=== PATIENT | male | born 1985 | race Caucasian/White ===

== ENCOUNTER 2019-06-17 14:19 | Inpatient (IN) | payer SELFPAY ==
[~2019-06-17] VITALS: Ht 182.9 cm; Wt 67.6 kg
[2019-06-17] MEDS ORDERED: HALOPERIDOL LACTATE 5 MG/ML VIAL ONE (14:58)
[2019-06-17] MEDS ORDERED: LORazepam 2 MG/ML VIAL ONE (14:58)
[2019-06-17] MEDS ORDERED: DiphenhydrAMINE HCL 50 MG/ML VIAL ONE (14:58)
[2019-06-17 15:57] LABS: BASOPHILS % (AUTO) 0.6 % (0.0-2.0); EOSINOPHILS % (AUTO) 0.1 % (1.0-6.0); HEMATOCRIT 35.6 % (41-53); HEMOGLOBIN 12.1 g/dL (13.5-17.5); LYMPHOCYTES # (AUTO) 1.1 K/uL (1.0-4.8); LYMPHOCYTES % (AUTO) 13.2 % (22.0-44.0); MEAN CORPUSCULAR HEMOGLOBIN 29.9 pg (26.0-34.0); MEAN CORPUSCULAR VOLUME 88 fL (80-100); MONOCYTES # (AUTO) 0.5 K/uL (0.1-1.0); MONOCYTES % (AUTO) 5.7 % (2.0-9.0); NEUTROPHILS # (AUTO) 6.4 K/uL (1.8-7.7); NEUTROPHILS % (AUTO) 80.4 % (40.0-70.0); PLATELET COUNT (AUTO) 277 K/uL (150-450); RED BLOOD CELL COUNT(AUTO) 4.04 MIL/uL (4.50-5.90); RED CELL DISTRIBUTION WIDTH 13.7 % (11.5-14.5)
[2019-06-17 16:16] LABS: ANION GAP 11 mmol/L (8-16); CALCIUM, TOTAL 8.8 mg/dL (8.8-10.5); CARBON DIOXIDE 25 mmol/L (22-29); CHLORIDE 101 mmol/L (98-107); CREATININE 0.96 mg/dL (0.60-1.30); GLOMERULAR FILTR. RATE CALC > 60 mL/min (>60); GLUCOSE,RANDOM 134 mg/dL (70-110); SODIUM SERUM 137 mmol/L (136-145); UREA NITROGEN, BLOOD 9 mg/dL (7-18)
[2019-06-17 16:37] LABS: ALANINE AMINOTRANSFERASE 16 U/L (12-78); ALKALINE PHOSPHATASE 76 U/L (46-116); ASPARTATE AMINOTRANSFERASE 14 U/L (15-37); BILIRUBIN,TOTAL 0.7 mg/dL (0.1-1.0); CREATINE KINASE, TOTAL ONLY 254 U/L (39-308); TOTAL PROTEIN, SERUM 7.2 g/dL (6.4-8.2)
[2019-06-17 16:43] LABS: APPEARANCE,URINE CLEAR (CLEAR); BILIRUBIN,URINE NEGATIVE (NEGATIVE); GLUCOSE, URINE (UA) NEGATIVE (NEGATIVE); KETONES,URINE 15 mg/dL (NEGATIVE); LEUKOCYTE ESTERASE ,URINE NEGATIVE (NEGATIVE); NITRATE,URINE NEGATIVE (NEGATIVE); OCCULT BLOOD,URINE NEGATIVE (NEGATIVE); PROTEIN,URINE POS 1+ (NEGATIVE); UROBILINOGEN,URINE 0.2 mg/dL (<=1.0)
[2019-06-17 16:48] LABS: AMPHET/METH SCREEN,URINE NEGATIVE (NEGATIVE); BARBITURATE SCREEN, URINE NEGATIVE (NEGATIVE); BENZODIAZEPINES SCREEN,URINE NEGATIVE (NEGATIVE); CANNABINOID SCREEN,URINE POSITIVE (NEGATIVE); COCAINE SCREEN,URINE NEGATIVE (NEGATIVE); METHADONE SCREEN, URINE NEGATIVE (NEGATIVE); OPIATE SCREEN,URINE NEGATIVE (NEGATIVE)
[2019-06-17 16:50] LABS: PHENCYCLIDINE SCREEN,URINE NEGATIVE (NEGATIVE)
[2019-06-17 16:56] LABS: SALICYLATE < 2.8 mg/dL (2.8-20.0)
[2019-06-17 17:16] LABS: BACTERIA,URINE None Seen /HPF (None Seen); RBC,URINE None Seen /HPF (0-2); SQUAMOUS EPITHELIAL CELL,UR Rare /LPF (None Seen); WBC,URINE 0-2 /HPF (0-5)
[2019-06-17 17:25] LABS: ACETAMINOPHEN < 2 mcg/mL (10-30)
[2019-06-17] MEDS ORDERED: HALOPERIDOL LACTATE 5 MG/ML VIAL IM ONE (18:00)
[2019-06-17] MEDS ORDERED: LORazepam 2 MG/ML VIAL IM ONE (18:00)
[2019-06-17] MEDS ORDERED: POTASSIUM CHLORIDE 20 MEQ ER TABLET PO ONE ×2 (18:00→22:15)
[2019-06-17] MEDS ORDERED: DiphenhydrAMINE HCL 50 MG/ML VIAL IM ONE (18:00)
[2019-06-17] MEDS ORDERED: SODIUM CHLORIDE 0.9% 1,000 ML IV ONE (19:15)
[2019-06-17] MEDS ORDERED: POTASSIUM CHL 10 MEQ/WATER 50 ML IV PRN (19:15)
[2019-06-18] MEDS: HALOPERIDOL 5 MG TABLET PO PRN ×2 (00:34→16:45)
[2019-06-18] MEDS: LORazepam 2 MG TABLET PO PRN ×4 (00:35→22:25)
[2019-06-18] MEDS ORDERED: INFLUENZA VIRUS VACCINE QVS 2019-20 (3YR+)/PF 60 MCG/0.5 ML SYRINGE IM ONE (01:45)
[2019-06-18 03:25] VITALS: BP 127/67
[2019-06-18 07:01] LABS: CHOL/HDL RATIO 2.6 (4.2-7.3)
[2019-06-18 07:52] LABS: POTASSIUM 4.2 mmol/L (3.5-5.1)
[2019-06-18 10:18] VITALS: BP 121/75
[2019-06-18 16:30] VITALS: BP 125/83
[2019-06-19] MEDS: LORazepam 2 MG TABLET PO PRN ×4 (08:19→22:34)
[2019-06-19 08:51] VITALS: BP 128/82
[2019-06-19 16:00] VITALS: BP 115/77
[2019-06-19] MEDS: HALOPERIDOL 5 MG TABLET PO PRN (16:03)
[2019-06-19] MEDS: RisperiDONE 1 MG TABLET PO SCH (18:50)
[2019-06-19] MEDS: ZOLPIDEM TARTRATE 10 MG TABLET PO PRN (23:50)
[2019-06-20 03:19] VITALS: BP 132/86
[2019-06-20] MEDS: HALOPERIDOL 5 MG TABLET PO PRN (04:44)
[2019-06-20 08:30] VITALS: BP 98/59
[2019-06-20] MEDS: RisperiDONE 1 MG TABLET PO SCH ×2 (09:08→17:17)
[2019-06-20] MEDS: LORazepam 2 MG TABLET PO PRN ×2 (09:09→18:10)
[2019-06-20] MEDS ORDERED: RISP1 PO (14:03)
[2019-06-20 16:58] VITALS: BP 108/76
[2019-06-21 00:25] VITALS: BP 137/82
[2019-06-21] MEDS: LORazepam 2 MG TABLET PO PRN (00:27)
[2019-06-21] MEDS: HALOPERIDOL 5 MG TABLET PO PRN (00:27)
[2019-06-21] MEDS: ZOLPIDEM TARTRATE 10 MG TABLET PO PRN (00:27)
== END 2019-06-21 04:30 | disposition home or self-care (01) | DRG 885 ==
LOC: EDBD 14:22 → EMS 14:22 → 3EI 22:00
PROVIDERS: ADMIT Psychiatry & Neurology Psychiatry; ATTEND Psychiatry & Neurology Psychiatry
DX: F20.0 Paranoid schizophrenia (principal); D64.9 Anemia, unspecified; E87.6 Hypokalemia; F12.90 Cannabis use, unspecified, uncomplicated; F31.9 Bipolar disorder, unspecified; Z78.1 Physical restraint status; Z79.899 Other long term (current) drug therapy; Z91.5 Personal history of self-harm
CPT/HCPCS: 70450; 84132; 87081; 93005; 96372; 99291; G0480; G0481; J1200; J1630; J2060; J3480; J7030